=== PATIENT | female | born 1985 | race Two or more races ===

== ENCOUNTER 2023-12-12 18:16 | Emergency (ER) | payer BC ==
[~2023-12-12] VITALS: Ht 157.5 cm; Wt 49.9 kg
[2023-12-12] MEDS ORDERED: PROPOFOL 20 ML IV ONE (18:57)
[2023-12-12] MEDS ORDERED: PROPOFOL 200 MG/20 ML VIAL IV ONE ×2 (19:00→20:00)
[2023-12-12 20:20] VITALS: BP 105/69; TEMP 98.1; O2SAT 100
== END 2023-12-12 20:21 | disposition home or self-care (01) ==
LOC: ER 18:22
DX: S43.014A Anterior dislocation of right humerus, initial encounter (principal); X58.XXXA Exposure to other specified factors, initial encounter; Y93.89 Activity, other specified; Y92.89 Other specified places as the place of occurrence of the external cause; Y99.8 Other external cause status
CPT/HCPCS: 99285; 23650; 99152; 73030 ×2; J2704; J7030 ×2; A4223; G0500